=== PATIENT | female | born 1990 | race African-American/Black ===

== ENCOUNTER 2016-10-12 16:21 | Emergency (ER) | payer MEDICAID ==
--- NOTE | 2016-10-12 17:23 | ER Document Report ---
ED Medical Screen (RME) - General Stated Complaint: ABDOMINAL PAIN Notes: 3 days sudden onset LUQ abdominal pain, dull ache that is illicted with touch and movement, can become so severe that she gets nauseous. otherwise able to tolerate diet, no vomiting. admits to mild flank pain but absence of pyuria, frequency, hematuria LMP: on depo. denies PMH TRAVEL OUTSIDE OF THE [place] IN LAST 30 DAYS: No - Related Data Allergies/Adverse Reactions: No Known Allergies Allergy (Verified 03/04/15 21:03) Past Medical History - Social History Family history: None - Immunizations Hx Diphtheria, Pertussis, Tetanus Vaccination: Yes
[2016-10-12 17:55] LABS: APPEARANCE,URINE SLIGHTLY-CLOUDY; BILIRUBIN,URINE NEGATIVE (NEGATIVE); GLUCOSE, URINE NEGATIVE (NEGATIVE); KETONES,URINE NEGATIVE (NEGATIVE); LEUKOCYTE ESTERASE,URINE NEGATIVE (NEGATIVE); NITRITE,URINE NEGATIVE (NEGATIVE); PROTEIN,URINE NEGATIVE (NEGATIVE); URINE SPECIFIC GRAVITY 1.028; UROBILINOGEN,URINE NEGATIVE mg/dL (<2.0)
[2016-10-12] MEDS ORDERED: LIDOCAINE 5% (700 MG) TRANSDERMAL ADH..PATCH TP ONE (19:28)
[2016-10-12] MEDS ORDERED: IBUPROFEN 600 MG TABLET PO ONE (19:28)
--- NOTE | 2016-10-12 19:31 | ER Document Report ---
ED General - General Chief Complaint: Abdominal Pain Stated Complaint: ABDOMINAL PAIN Notes: Patient is a 26-year-old female without past medical history who presents with 3 days of left upper quadrant abdominal pain that is only present when palpating the area. Describes as a mild, dull, aching pain. Nothing improves the pain other than not touching the area. States that she first notices pain when her walked across her abdomen 3 days ago. She denies any pain except for when she moves or rotates around the area or presses on the area. She denies any associated nausea, vomiting, diarrhea, shortness of breath, chest pain, fever. No history of similar symptoms in the past. She has not done anything to try to treat her symptoms. She has not seen her primary care physician regarding these concerns today. No history of DVT or pulmonary embolus. She does not take any form of estrogen. TRAVEL OUTSIDE OF THE [place] IN LAST 30 DAYS: No - Related Data Allergies/Adverse Reactions: No Known Allergies Allergy (Verified 10/12/16 17:19) Past Medical History - General Information source: Patient - Social History Smoking Status: Current Every Day Smoker Chew tobacco use (# tins/day): No Frequency of alcohol use: None Drug Abuse: None Lives with: Spouse/Significant other Family History: Reviewed & Not Pertinent Patient has suicidal ideation: No Patient has homicidal ideation: No Renal/ Medical History: Denies: Hx Peritoneal Dialysis - Immunizations Hx Diphtheria, Pertussis, Tetanus Vaccination: Yes Review of Systems - Review of Systems Notes: Constitutional: Negative for fever. HENT: Negative for sore throat. Eyes: Negative for visual changes. Cardiovascular: Negative for chest pain. Respiratory: Negative for shortness of breath. Gastrointestinal: Positive for abdominal pain, negative for vomiting or diarrhea. Genitourinary: Negative for dysuria. Musculoskeletal: Negative for back pain. Skin: Negative for rash. Neurological: Negative for headaches, weakness or numbness. 10 point ROS negative except as marked above and in HPI. Physical Exam - Vital signs Vitals: Temp Pulse Resp BP Pulse Ox 98.2 F 82 16 105/67 100 10/12/16 17:19 10/12/16 17:19 10/12/16 17:19 10/12/16 17:19 10/12/16 17:19 Interpretation: Normal Notes: PHYSICAL EXAMINATION: GENERAL: Well-appearing, well-nourished and in no acute distress. HEAD: Atraumatic, normocephalic. EYES: Pupils equal round and reactive to light, extraocular movements intact, sclera anicteric, conjunctiva are normal. ENT: nares patent, oropharynx clear without exudates. Moist mucous membranes. NECK: Normal range of motion, supple without lymphadenopathy LUNGS: Breath sounds clear to auscultation bilaterally and equal. No wheezes rales or rhonchi. HEART: Regular rate and rhythm without murmurs ABDOMEN: Soft, nontender, normoactive bowel sounds. No guarding, no rebound. No masses appreciated. EXTREMITIES: Normal range of motion, no pitting or edema. No cyanosis. NEUROLOGICAL: No focal neurological deficits. Moves all extremities spontaneously and on command. PSYCH: Normal mood, normal affect. SKIN: Warm, Dry, normal turgor, no rashes or lesions noted. Course - Re-evaluation Re-evalutation: 10/12/16 19:29 Patient presents with left upper quadrant abdominal pain but is otherwise very well appearance, vitals within normal limits, no acute distress. She denies any abdominal pain except for when the area is palpated or when she moves. Clinical history is not consistent with an acute pulmonary embolus and the patient is PERC criteria negative. She has no history of autoimmune conditions or sickle cell anemia to suggest an acute splenic pathology. No splenomegaly. Patient denies any flank pain, dysuria, or hematuria. She states the pain certain after her child walked on the area and I suspect there may be a musculoskeletal component to her pain. However, at this time of assessment the patient the exact etiology of her pain is unclear but I do not suspect any acute life-threatening pathology at this time. I do not see any indication based on history, vitals and exam for labs or additional imaging.At this time will discharge with return precautions and follow-up recommendations. Verbal discharge instructions given a the bedside and opportunity for questions given. Medication warnings reviewed. Patient is in agreement with this plan and has verbalized understanding of return precautions and the need for primary care follow-up in the next 24-72 hours. - Vital Signs Vital signs: Temp Pulse Resp BP Pulse Ox 98.7 F 84 12 108/64 100 10/12/16 19:36 10/12/16 19:36 10/12/16 19:36 10/12/16 19:36 10/12/16 19:36 Discharge - Discharge Clinical Impression: Left upper quadrant abdominal pain of unknown etiology Condition: Good Disposition: HOME, SELF-CARE Additional Instructions: You have been seen in the Emergency Department (ED) for abdominal pain. Your evaluation did not identify a clear cause of your symptoms but was generally reassuring. Please follow up with your doctor as soon as possible regarding today's emergent visit and the symptoms that are bothering you. Return to the ED if your abdominal pain worsens or fails to improve, you develop bloody vomiting, bloody diarrhea, you are unable to tolerate fluids due to vomiting, fever greater than 101, or other symptoms that concern you.
[2016-10-12 19:37] VITALS: BP 108/64
== END 2016-10-12 20:02 | disposition home or self-care (01) ==
LOC: ER 16:21
DX: R10.12 Left upper quadrant pain (principal); R10.9 Unspecified abdominal pain; F17.210 Nicotine dependence, cigarettes, uncomplicated
CPT/HCPCS: 99284; 81001; J3490 ×2

== ENCOUNTER 2017-03-24 21:09 | Emergency (ER) | payer MEDICAID ==
--- NOTE | 2017-03-24 22:17 | ER Document Report ---
HPI - HPI Patient complains to provider of: low back pain Onset: Other - 3 days Onset/Duration: Persistent Quality of pain: Achy Pain Level: 4 Context: Patient presents emergency department with complaints of low back pain. Patient reports she started experience back pain approximately 3 days ago. Denies trauma. She reports she did move 1 week ago lifting heavy boxes. Denies pain at that time. Reports she has taken Tylenol Motrin without relief of symptoms. Denies urinary or bowel incontinence or retention. Denies numbness and tingling. Denies urinary frequency or pain with void. Denies fever vomiting diarrhea. 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 IN LAST 30 DAYS: No - HEENT HEENT: Atraumatic, Normocephalic - NECK Neck: Normal Inspection, Supple. negative: Lymphadenopathy-Left, Lymphadenopathy-Right - RESPIRATORY Respiratory: Breath Sounds Normal, No Respiratory Distress O2 Sat by Pulse Oximetry: 94 - CARDIOVASCULAR Cardiovascular: Regular Rate - GI/ABDOMEN Gastrointestinal: Abdomen Soft - BACK Back: Normal Inspection - No obvious deformity no swelling no erythema no warmth good distal movement and sensation no weakness good reflexes - MUSCULOSKELETAL/EXTREMETIES Musculoskeletal/Extremeties: AKIL CONTRERAS - NEURO Level of Consciousness: Awake, Alert, Appropriate Motor/Sensory: No Motor Deficit - DERM Integumentary: Warm, Dry Adult Front & Back Diagram: 1 - Reports low back pain. paraspinal no vertebral tenderness Course - Re-evaluation Re-evalutation: 03/24/17 22:49 The patient presents with low back pain without signs of spinal cord compression , cauda equine syndrome, infection, aneurysm, or other serious etiology. The patient is neurologically intact. The patient has good distal movement and sensation, denies urinary or bowel incontinence/retention. Given the extremely low risk of these diagnosis, further testing and evaluation for these possibilities does not appear to be indicated at this time. The patient has been instructed to return if the symptoms worsen or change in anyway. Patient is breast-feeding. She was cautioned on Robaxin and muscle relaxers that could be excreted in the breast milk and take caution. - Vital Signs Vital signs: Temp Pulse Resp BP Pulse Ox 98.9 F 77 16 119/78 94 03/24/17 22:03 03/24/17 22:03 03/24/17 22:03 03/24/17 22:03 03/24/17 22:03 Discharge - Discharge Clinical Impression: low back muscle pain Condition: Stable Disposition: HOME, SELF-CARE Instructions: Ice Packs ([facility]), Low Back Pain ([facility]), Muscle Relaxers ([facility]), Muscle Strain ([facility]), Use of Jfcq-Ofo-Nrrebfe Ibuprofen ([facility]) Additional Instructions: *You have been evaluated for low back muscular pain *Take medication as prescribed *Take ibuprofen as indicated *Rest/Ice- heat packs as directed *Follow up with a primary care provider within one week for recheck *Return to ED for worsening condition, changes, needs Prescriptions: Cyclobenzaprine HCl [Flexeril 5 mg Tablet] 5 mg PO TID #15 tablet Forms: Return to Work Referrals: JACKIE MURRAY MD [Primary Care Provider] - Follow up in 1 week
[2017-03-24] MEDS ORDERED: METHOCARBAMOL 500 MG TABLET PO ONE (22:46)
[2017-03-24 23:20] VITALS: BP 109/69
== END 2017-03-24 23:15 | disposition home or self-care (01) ==
LOC: ER 21:09
DX: M54.5 Low back pain (principal); M54.9 Dorsalgia, unspecified
CPT/HCPCS: 99283; J3490

== ENCOUNTER 2018-11-10 00:28 | Emergency (ER) | payer MEDICAID ==
[2018-11-10] MEDS ORDERED: ONDANSETRON HCL INJ/PF 4 MG/2 ML SDV IV ONE (01:39)
--- NOTE | 2018-11-10 01:46 | ER Document Report ---
ED GI/ - General Chief Complaint: Abdominal Cramping Stated Complaint: ABDOMINAL PAIN Time Seen by Provider: 11/10/18 01:13 Primary Care Provider: [facility] [Provider Group] - 11/11/18 Notes: Patient is a 28-year-old female, at approximately 7 weeks gestation by last menstrual period, that comes emergency department for chief complaint of worsening lower abdominal pain on both sides for the past several days. She denies vaginal bleeding, dysuria, vaginal discharge, flank pain, fever/chills. She reports nausea but denies vomiting. She has not yet had a confirmed IUP. She is taking vitamins, she does not take any other medications, she denies any medical history otherwise other than a miscarriage. TRAVEL OUTSIDE OF THE [place] IN LAST 30 DAYS: No - Related Data Allergies/Adverse Reactions: No Known Allergies Allergy (Verified 03/24/17 22:03) Past Medical History - General Information source: Patient - Social History Smoking Status: Never Smoker Frequency of alcohol use: None Drug Abuse: None Lives with: Family Family History: Reviewed & Not Pertinent - Medical History Medical History: Negative Renal/ Medical History: Denies: Hx Peritoneal Dialysis Surgical Hx: Negative - Immunizations Immunizations up to date: Yes Hx Diphtheria, Pertussis, Tetanus Vaccination: Yes Review of Systems - Review of Systems Constitutional: No symptoms reported EENT: No symptoms reported Cardiovascular: No symptoms reported Respiratory: No symptoms reported Gastrointestinal: See HPI Genitourinary: See HPI Female Genitourinary: See HPI Musculoskeletal: No symptoms reported Skin: No symptoms reported Hematologic/Lymphatic: No symptoms reported Neurological/Psychological: No symptoms reported Physical Exam - Vital signs Vitals: Temp Pulse Resp BP Pulse Ox 98.6 F 78 16 110/69 100 11/10/18 01:01 11/10/18 01:01 11/10/18 01:01 11/10/18 01:01 11/10/18 01:01 - Notes Notes: GENERAL: Alert, interacts well. No acute distress. HEAD: Normocephalic, atraumatic. EYES: Pupils equal, round, and reactive to light. Extraocular movements intact. ENT: Oral mucosa moist, tongue midline. Oropharynx unremarkable. Airway patent. Nares patent, no nasal septal hematoma, TM's intact. NECK: Full range of motion. Supple. Trachea midline. LUNGS: Clear to auscultation bilaterally, no wheezes, rales, or rhonchi. No respiratory distress. HEART: Regular rate and rhythm. No murmur ABDOMEN: Soft, non-tender. Non-distended. Bowel sounds present in all 4 quadrants. GENITOURINARY: Deferred EXTREMITIES: Moves all 4 extremities spontaneously. No edema, normal radial and dorsalis pedis pulses bilaterally. No cyanosis. BACK: no cervical, thoracic, lumbar midline tenderness. No saddle anesthesia, normal distal neurovascular exam. NEUROLOGICAL: Alert and oriented x3. Normal speech. [cranial nerves II through XII grossly intact]. PSYCH: Normal affect, normal mood. SKIN: Warm, dry, normal turgor. No rashes or lesions noted. Course - Re-evaluation Re-evalutation: Patient alert and well-appearing. No symptoms reported after nausea medication. Abdomen soft and nontender. Unremarkable vital signs. CBC unremarkable. HCG is very elevated. Urinalysis unremarkable. RhoGam is not indicated. Ultrasound showing intrauterine with twin gestation, heartbeats identified, unremarkable otherwise. I discussed this with patient, provided her with a copy for the report, she states that she has close follow-up with [facility]. Discussed expectations and return precautions, provided with nausea medication after discussion. Patient states understanding and agreement. Stable at time of discharge. - Vital Signs Vital signs: Temp Pulse Resp BP Pulse Ox 98.3 F 84 16 109/62 100 11/10/18 03:56 11/10/18 03:56 11/10/18 03:56 11/10/18 03:56 11/10/18 03:56 - Laboratory Result Diagrams: 11/10/18 01:42 Laboratory results interpreted by me: 11/10/18 11/10/18 01:42 01:42 Hct 35.8 L Beta HCG, Quant [id number] H Discharge - Discharge Clinical Impression: Nausea, Abdominal cramping affecting Twin gestation in first trimester Qualifiers: Multiple gestation type: unspecified Qualified Code(s): O30.001 - Twin , unspecified number of placenta and unspecified number of amniotic sacs, first trimester Condition: Stable Disposition: HOME, SELF-CARE Additional Instructions: Your ultrasound shows developing twin gestation at 6 weeks 6 days. No concerning abnormality's are seen on your laboratory or ultrasound. Take Reglan if needed for nausea, take Tylenol for need for pain, stay hydrated. Follow-up closely with [facility]CHNIC[facility] for additional evaluation and management. Return for any concerning symptoms including severe worsening pain, fever, uncontrolled vomiting, bleeding, or any other concerning or worsening symptoms. Prescriptions: Metoclopramide HCl [Reglan] 5 mg PO ASDIR PRN #30 tablet PRN Reason: Referrals: [facility] [Provider Group] - 11/11/18
[2018-11-10 01:54] LABS: ABSOLUTE EOSINOPHILS # (AUTO) 0.1 10^3/uL (0.0-0.6); ABSOLUTE LYMPHOCYTES (AUTO) 2.4 10^3/uL (0.5-4.7); ABSOLUTE MONOCYTES (AUTO) 0.6 10^3/uL (0.1-1.4); ABSOLUTE NEUT (AUTO) 5.4 10^3/uL (1.7-8.2); BASOPHILS % (AUTO) 0.5 % (0-2); EOSINOPHILS % (AUTO) 0.6 % (0-6); HEMATOCRIT 35.8 % (36.0-47.0); HEMOGLOBIN 12.1 g/dL (12.0-15.5); LYMPHOCYTES % (AUTO) 28.3 % (13-45); MEAN CORPUSCULAR HEMOGLOBIN 29.7 pg (27.0-33.4); MEAN CORPUSCULAR HGB CONC 33.7 g/dL (32.0-36.0); MEAN CORPUSCULAR VOLUME 88 fl (80-97); PLATELET COUNT 202 10^3/uL (150-450); RED BLOOD COUNT 4.06 10^6/uL (3.72-5.28); RED CELL DISTRIBUTION WIDTH 13.2 % (11.5-14.0); SEGMENTED NEUTROPHILS % (AUTO) 63.6 % (42-78); TOTAL CELLS COUNTED % (AUTO) 100 %; WHITE BLOOD COUNT 8.5 10^3/uL (4.0-10.5)
[2018-11-10 02:07] LABS: AMORPHOUS SEDIMENT,URINE TRACE /HPF; APPEARANCE,URINE CLOUDY; BILIRUBIN,URINE NEGATIVE (NEGATIVE); COLOR,URINE YELLOW; GLUCOSE, URINE NEGATIVE (NEGATIVE); KETONES,URINE NEGATIVE (NEGATIVE); LEUKOCYTE ESTERASE,URINE NEGATIVE (NEGATIVE); NITRITE,URINE NEGATIVE (NEGATIVE); PROTEIN,URINE NEGATIVE (NEGATIVE); URINE SPECIFIC GRAVITY 1.016; UROBILINOGEN,URINE NEGATIVE mg/dL (<2.0)
--- NOTE | 2018-11-10 02:21 | RADIOLOGY REPORT (SQ) ---
EXAM DESCRIPTION: US TRANSVAGINAL COMPLETED DATE/TME: 11/10/2018 01:21 CLINICAL HISTORY: 28 years, Female, +HCG, pelvic pain COMPARISON: None. TECHNIQUE: Transverse and longitudinal transvaginal sonographic images of the pelvis in a first trimester patient LIMITATIONS: None. FINDINGS: The uterus measures 10.5 x 6.9 x 5.6 cm. There is a twin intrauterine with 2 distinct gestational sacs and 2 distinct poles. Baby A has heart tones obtained at 153 bpm. Average ultrasound age for baby A is 6 weeks 6 days based on a mean crown-rump length of 0.91 cm. Baby B has heart tones obtained at 157 bpm. Of sound 8 for baby B is 6 weeks 6 days based on a mean crown-rump length of 0.87 cm. Assessment of the adnexal fluid volume and placenta is not performed due to early gestational age. The maternal right ovary measures 3.8 x 2.6 x 2.5 cm, the left 4.3 x 3.3 x 3.6 cm. Left ovarian cyst likely relates to corpus luteal cyst measuring 3.4 x 3.2 x 3.3 cm. No solid adnexal mass. No free fluid. Cervical length is 3.92 cm. IMPRESSION: Viable twin intrauterine gestation, as above. Nonemergent obstetric follow-up recommended. Current ultrasound age for both baby A and baby B is 6 weeks 6 days copyright 2011 [employer]- All Rights Reserved
[2018-11-10 04:24] VITALS: BP 109/62
== END 2018-11-10 03:56 | disposition home or self-care (01) ==
LOC: ER 00:28
DX: O26.891 Other specified pregnancy related conditions, first trimester (principal); R11.0 Nausea; R10.30 Lower abdominal pain, unspecified; O30.001 Twin pregnancy, unspecified number of placenta and unspecified number of amniotic sacs, first trimester; Z3A.01 Less than 8 weeks gestation of pregnancy
CPT/HCPCS: 99284; 96374; 86900; 86901; 36415; 84702; 85025; 81001; 76817; 93976; J2405

== ENCOUNTER 2019-06-25 16:10 | Inpatient (IN) | payer MEDICAID ==
[2019-06-25 16:38] LABS: APPEARANCE,URINE CLEAR; BILIRUBIN,URINE NEGATIVE (NEGATIVE); COLOR,URINE YELLOW; GLUCOSE, URINE NEGATIVE (NEGATIVE); KETONES,URINE TRACE mg/dL (NEGATIVE); LEUKOCYTE ESTERASE,URINE NEGATIVE (NEGATIVE); NITRITE,URINE NEGATIVE (NEGATIVE); PROTEIN,URINE NEGATIVE (NEGATIVE); URINE SPECIFIC GRAVITY 1.009; UROBILINOGEN,URINE NEGATIVE mg/dL (<2.0)
--- NOTE | 2019-06-25 16:47 | Admission Physical ---
Datetime Report Generated by CPN: 06/25/2019 16:46 CURRENT ADMISSION Hx Assessment: The History has been Reviewed and is Current Chief Complaint: Uterine Contractions Indication for Induction: Not Applicable Admit Impression : Term, Intrauterine Admit Plan: Admit to Unit; Initiate Labor Protocol ALLERGIES Medication Allergies: No Medication Allergies: No Known Allergies (03/24/2017) OBSTETRICAL HISTORY EDC: 06/24/2019 00:00 : 3 Para: 1 Livin PHYSICAL EXAM General: Normal Lungs: Normal Extremities: Normal Pelvic Type: Adequate Physical Exam Comments: pelvis proven to 7lbs 2 oz Vital Signs: Reviewed; Within Normal Limits VAGINAL EXAM Contraction Comments: 4-10 MEMBRANES Membranes: Bulging FETUS A EGA: 40.1 Monitoring: External US FHR Category: Category I Presentation: Vertex Admit Comment: 29yo @ 40w1d into L_D with contractions about 10min apart x2hrs and found to be 7-8cm on exam. Pt. is GBS neg, O pos, RI with significant hx for EAB and twin with this with loss of one baby at @8wga otherwise uncomplicated. Plan is to admit and deliver baby. Unsure about pain medication at this time. INFORMED CONSENT Assignment: Anabell Monet MD Signature: with User ID: [email or web address] : with User ID: [email or web address]
[2019-06-25 16:54] LABS: URINE AMPHETAMINES SCREEN NEGATIVE; URINE BARBITURATES SCREEN NEGATIVE; URINE BENZODIAZEPINES SCREEN NEGATIVE; URINE COCAINE SCREEN NEGATIVE; URINE MARIJUANA (THC) SCREEN NEGATIVE; URINE METHADONE SCREEN NEGATIVE; URINE PHENCYCLIDINE SCREEN NEGATIVE
[2019-06-25 17:07] LABS: ABSOLUTE EOSINOPHILS # (AUTO) 0.1 10^3/uL (0.0-0.6); ABSOLUTE LYMPHOCYTES (AUTO) 1.8 10^3/uL (0.5-4.7); ABSOLUTE MONOCYTES (AUTO) 0.7 10^3/uL (0.1-1.4); BASOPHILS % (AUTO) 0.4 % (0-2); EOSINOPHILS % (AUTO) 0.7 % (0-6); HEMOGLOBIN 12.1 g/dL (12.0-15.5); LYMPHOCYTES % (AUTO) 18.6 % (13-45); MEAN CORPUSCULAR HEMOGLOBIN 30.3 pg (27.0-33.4); MEAN CORPUSCULAR HGB CONC 33.7 g/dL (32.0-36.0); MEAN CORPUSCULAR VOLUME 90 fl (80-97); MONOCYTES % (AUTO) 7.1 % (3-13); PLATELET COUNT 169 10^3/uL (150-450); RED BLOOD COUNT 4.01 10^6/uL (3.72-5.28); RED CELL DISTRIBUTION WIDTH 13.4 % (11.5-14.0); SEGMENTED NEUTROPHILS % (AUTO) 73.2 % (42-78); TOTAL CELLS COUNTED % (AUTO) 100 %; WHITE BLOOD COUNT 9.5 10^3/uL (4.0-10.5)
[2019-06-25] MEDS ORDERED: OXYTOCIN 10 UNIT/ML VIAL ONE (18:30)
[2019-06-25] MEDS ORDERED: MISOPROSTOL 0.2 MG TABLET ONE (18:30)
[2019-06-25] MEDS ORDERED: OXYTOCIN/NORMAL SALINE 20 UNIT/1,000 ML RTUINJ ONE (18:30)
[2019-06-25] MEDS ORDERED: LIDOCAINE 1% INJ-PF (10 MG/ML) 30 ML SDV ONE (18:30)
[2019-06-25] MEDS: ACETAMINOPHEN WITH CODEINE #3 TABLET PO PRN (19:23)
[2019-06-25] MEDS ORDERED: OXYTOCIN IV PRN (19:25)
[2019-06-25] MEDS ORDERED: DIBUCAINE 1% OINTMENT 56 GM TP PRN (19:25)
[2019-06-25] MEDS ORDERED: DIPH/PERTUSS(ACELL)/TETANUS VAC/PF 0.5 ML SYR (>=10YO) IM PRN (19:25)
[2019-06-25] MEDS ORDERED: ZOLPIDEM TARTRATE 5 MG TABLET PO PRN (19:25)
[2019-06-25] MEDS ORDERED: NORMAL SALINE IV PRN (19:25)
[2019-06-25] MEDS ORDERED: ACETAMINOPHEN WITH CODEINE #3 TABLET PO PRN (19:25)
[2019-06-25] MEDS ORDERED: ACETAMINOPHEN WITH CODEINE #3 TABLET ONE (19:29)
--- NOTE | 2019-06-25 21:30 | Warning Signs in Babies ---
VOD Warning Signs Datetime Report Generated by N: 06/25/2019 21:30 VOD#608 -Warning Signs in Babies: Viewed with Parent(s)/Family (06/25/2019 21:29:Jayy Jorgenesn RN)
[2019-06-25] MEDS: IBUPROFEN 800 MG TABLET PO SCH (23:51)
[2019-06-25] MEDS: BENZOCAINE/MENTHOL AEROSOL SPRAY 56 ML TOP PRN (23:52)
[2019-06-26] MEDS: IBUPROFEN 800 MG TABLET PO SCH ×3 (06:03→23:11)
[2019-06-26 07:05] LABS: HEMATOCRIT 35.3 % (36.0-47.0); HEMOGLOBIN 11.8 g/dL (12.0-15.5); MEAN CORPUSCULAR HEMOGLOBIN 30.1 pg (27.0-33.4); MEAN CORPUSCULAR HGB CONC 33.6 g/dL (32.0-36.0); MEAN CORPUSCULAR VOLUME 90 fl (80-97); PLATELET COUNT 151 10^3/uL (150-450); RED BLOOD COUNT 3.93 10^6/uL (3.72-5.28); RED CELL DISTRIBUTION WIDTH 13.5 % (11.5-14.0); WHITE BLOOD COUNT 13.2 10^3/uL (4.0-10.5)
[2019-06-26] MEDS: FERROUS SULFATE 325 MG TABLET PO SCH ×2 (11:06→17:53)
[2019-06-26] MEDS: SENNOSIDES/DOCUSATE 8.6-50 MG 1 EACH TABLET PO SCH (11:06)
[2019-06-26] MEDS: PRENATAL VITAMIN W DHA CAPSULE PO SCH (11:06)
[2019-06-26] MEDS: DOCUSATE SODIUM 100 MG CAPSULE PO SCH ×2 (11:06→17:53)
--- NOTE | 2019-06-26 11:46 | PDOC PROGRESS REPORT ---
Subjective-OB Progress Note for:: 06/26/19 Physical Exam (OB) Vital Signs: Temp Pulse Resp BP Pulse Ox 97.8 F 64 18 110/66 100 06/26/19 07:36 06/26/19 07:36 06/26/19 07:36 06/26/19 07:36 06/26/19 07:36 Intake & Output 06/25/19 06/26/19 06/27/19 06:59 06:59 06:59 Weight 73.936 kg - Lochia Lochia Amount: Scant < 10 ml Lochia Color: Rubra/Red - Abdomen Description: Tender, Soft Hernia Present: No Bowel Sounds: Normoactive Flatus Presence: Present Stool: No Fundal Description: Firm, Midline Fundal Height: u/u - u/2 Objective-Diagnostic Laboratory: 06/26/19 06:25 06/25/19 06/25/19 06/25/19 16:23 16:50 16:50 WBC 9.5 RBC 4.01 Hgb 12.1 Hct 36.0 MCV 90 MCH 30.3 MCHC 33.7 RDW 13.4 Plt Count 169 Seg Neutrophils % 73.2 Urine Color YELLOW Urine Appearance CLEAR Urine pH 7.0 Ur Specific [place] 1.009 Urine Protein NEGATIVE Urine Glucose (UA) NEGATIVE Urine Ketones TRACE H Urine Blood NEGATIVE Urine Nitrite NEGATIVE Ur Leukocyte Esterase NEGATIVE Blood Type O POSITIVE Antibody Screen NEGATIVE 06/26/19 06:25 WBC 13.2 H RBC 3.93 Hgb 11.8 L Hct 35.3 L MCV 90 MCH 30.1 MCHC 33.6 RDW 13.5 Plt Count 151 Seg Neutrophils % Urine Color Urine Appearance Urine pH Ur Specific [place] Urine Protein Urine Glucose (UA) Urine Ketones Urine Blood Urine Nitrite Ur Leukocyte Esterase Blood Type Antibody Screen
[2019-06-26] MEDS: ACETAMINOPHEN WITH CODEINE #3 TABLET PO PRN ×2 (11:50→17:56)
[2019-06-27] MEDS: IBUPROFEN 800 MG TABLET PO SCH (06:13)
[2019-06-27 08:12] VITALS: BP 117/83
[2019-06-27] MEDS: PRENATAL VITAMIN W DHA CAPSULE PO SCH (09:18)
[2019-06-27] MEDS: DOCUSATE SODIUM 100 MG CAPSULE PO SCH (09:18)
[2019-06-27] MEDS: BENZOCAINE/MENTHOL AEROSOL SPRAY 56 ML TOP PRN (09:18)
[2019-06-27] MEDS: SENNOSIDES/DOCUSATE 8.6-50 MG 1 EACH TABLET PO SCH (09:18)
[2019-06-27] MEDS: FERROUS SULFATE 325 MG TABLET PO SCH (09:18)
[2019-06-27] MEDS: ACETAMINOPHEN WITH CODEINE #3 TABLET PO PRN (09:26)
--- NOTE | 2019-06-27 10:32 | PDOC PROGRESS REPORT ---
Subjective-OB Progress Note for:: 06/27/19 Subjective: Doing well, ready to go home, , voiding Physical Exam (OB) Vital Signs: Temp Pulse Resp BP Pulse Ox 98.4 F 78 18 117/83 100 06/27/19 10:29 06/27/19 10:29 06/27/19 10:29 06/27/19 07:39 06/27/19 10:29 Intake & Output 06/26/19 06/27/19 06/28/19 06:59 06:59 06:59 Intake Total 600 Balance 600 Weight 73.936 kg - PIH/Pre-Eclampsia DTR's: 1 + Clonus: Negative Headache: Absent Epigastric Pain: No Visual Changes: No - Lochia Lochia Amount: Scant < 10 ml Lochia Color: Rubra/Red - Abdomen Description: Soft Hernia Present: No Fundal Description: Firm, Midline Fundal Height: u/u - u/2 Objective-Diagnostic Laboratory: 06/26/19 06:25 Assessment and Plan(PN) - Assessment and Plan (1) Precipitous delivery Is this a current diagnosis for this admission?: Yes (2) Delivery normal Is this a current diagnosis for this admission?: Yes - Time Spent with Patient Time with patient: Less than 15 minutes Medications reviewed and adjusted accordingly: Yes - Disposition Anticipated Discharge: Home Within: within 24 hours
--- NOTE | 2019-06-27 10:36 | PDOC DISCHARGE SUMMARY ---
Impression - Admit/DC Date/PCP Admission Date/Primary Care Provider: 06/25/19 16:42 JACKIE MURRAY MD Discharge Date: 06/27/19 - Discharge Diagnosis (1) Precipitous delivery Is this a current diagnosis for this admission?: Yes (2) Delivery normal Is this a current diagnosis for this admission?: Yes - Additional Information Resuscitation Status: Full Code Discharge Diet: As Tolerated, Regular Discharge Activity: Activity As Tolerated, No Lifting Over 10 Pounds, No Lifting/Push/Pulling, Pelvic Rest Referrals: JACKIE MURRAY MD [Primary Care Provider] - (4 weeks) ELVIN NICHOLAS MD [ACTIVE STAFF] - Home Medications: Prenat 115/Iron Fum/Folic/Dss [ 19 Tablet] 1 tab PO DAILY 03/04/15 HPI Gestational Age: 40.1 Reason(s) for Admission: Onset of Labor Procedures: Ultrasound Intrapartum Procedure(s): Spontaneous Vaginal Delivery Hospital Course Hospital Course: Admitted in labor, del male infant, 8/9, no lacerations Results Laboratory Results: WBC 13.2 10^3/uL (4.0-10.5) H 06/26/19 06:25 RBC 3.93 10^6/uL (3.72-5.28) 06/26/19 06:25 Hgb 11.8 g/dL (12.0-15.5) L 06/26/19 06:25 Hct 35.3 % (36.0-47.0) L 06/26/19 06:25 MCV 90 fl (80-97) 06/26/19 06:25 MCH 30.1 pg (27.0-33.4) 06/26/19 06:25 MCHC 33.6 g/dL (32.0-36.0) 06/26/19 06:25 RDW 13.5 % (11.5-14.0) 06/26/19 06:25 Plt Count 151 10^3/uL (150-450) 06/26/19 06:25 Lymph % (Auto) 18.6 % (13-45) 06/25/19 16:50 [place] % (Auto) 7.1 % (3-13) 06/25/19 16:50 Eos % (Auto) 0.7 % (0-6) 06/25/19 16:50 Baso % (Auto) 0.4 % (0-2) 06/25/19 16:50 Absolute Neuts (auto) 7.0 10^3/uL (1.7-8.2) 06/25/19 16:50 Absolute Lymphs (auto) 1.8 10^3/uL (0.5-4.7) 06/25/19 16:50 Absolute Monos (auto) 0.7 10^3/uL (0.1-1.4) 06/25/19 16:50 Absolute Eos (auto) 0.1 10^3/uL (0.0-0.6) 06/25/19 16:50 Absolute Basos (auto) 0.0 10^3/uL (0.0-0.2) 06/25/19 16:50 Seg Neutrophils % 73.2 % (42-78) 06/25/19 16:50 Urine Color YELLOW 06/25/19 16:23 Urine Appearance CLEAR 06/25/19 16:23 Urine pH 7.0 (5.0-9.0) 06/25/19 16:23 Ur Specific [place] 1.009 06/25/19 16:23 Urine Protein NEGATIVE mg/dL (NEGATIVE) 06/25/19 16:23 Urine Glucose (UA) NEGATIVE mg/dL (NEGATIVE) 06/25/19 16:23 Urine Ketones TRACE mg/dL (NEGATIVE) H 06/25/19 16:23 Urine Blood NEGATIVE (NEGATIVE) 06/25/19 16:23 Urine Nitrite NEGATIVE (NEGATIVE) 06/25/19 16:23 Urine Bilirubin NEGATIVE (NEGATIVE) 06/25/19 16:23 Urine Urobilinogen NEGATIVE mg/dL (<2.0) 06/25/19 16:23 Ur Leukocyte Esterase NEGATIVE (NEGATIVE) 06/25/19 16:23 Urine Ascorbic Acid NEGATIVE (NEGATIVE) 06/25/19 16:23 Urine Opiates Screen NEGATIVE 06/25/19 16:23 Urine Methadone Screen NEGATIVE 06/25/19 16:23 Ur Barbiturates Screen NEGATIVE 06/25/19 16:23 Ur Phencyclidine Scrn NEGATIVE 06/25/19 16:23 Ur Amphetamines Screen NEGATIVE 06/25/19 16:23 U Benzodiazepines Scrn NEGATIVE 06/25/19 16:23 Urine Cocaine Screen NEGATIVE 06/25/19 16:23 U Marijuana (THC) Screen NEGATIVE 06/25/19 16:23 RPR NONREACTIVE (NONREACTIVE) 06/25/19 16:50 Blood Type O POSITIVE 06/25/19 16:50 Antibody Screen NEGATIVE 06/25/19 16:50 Plan Health Concerns: none Plan of Treatment: RTC 4 weeks Time Spent: Less than 30 Minutes
--- NOTE | 2019-07-01 08:15 | Delivery Summary ---
Del Sum A-C Datetime Report Generated by CPN: 07/01/2019 08:14 DELIVERY PERSONNEL DELIVERY PERSONNEL: [id number] Delivery Doctor:: Anabell Monet MD Labor and Delivery Nurse:: Elidia Newton RNdoor assembler Nurse:: Jayy Jorgensen RN Business Continuity Director/FIRE AND SAFETY HELPER: Shilpa French Additional Personnel: : Laura Grace RN MATERNAL INFORMATION Delivery Anesthesia: None Medications After Delivery: Pitocin Bolus-Please Comment Meds After Delivery Comment: Pitocin 20 units/ 1000 ml NSS Delivery QBL: 0 Delivery QBL Comment: 0 Maternal Complications: Precipitous Labor (<3hrs) Provider Comments: of a viable male @ 1912 w/ an JOSEPH w/nuchal cord x 1 presentation; APGARS 8, 9; no lacs LABOR SUMMARY EDC: 06/24/2019 00:00 No. Babies in Womb: 1 Attempted: No Labor Anesthesia: None LABOR INFORMATION Reason for Induction: Not Applicable Onset of Labor: 06/25/2019 16:19 Complete Dilatation: 06/25/2019 19:09 Group B Beta Strep: negative Antibiotics # of Doses: 0 Steroids Given: None Reason Steroids Not Administered: Not Applicable MEMBRANES Membranes Rupture Method: Artificial Rupture of Membranes: 06/25/2019 18:41 Length of Rupture (hr): 0.53 Amniotic Fluid Color: Clear Amniotic Fluid Amount: Small Amniotic Fluid Odor: Normal STAGES OF LABOR Stage 1 hr: 2 Stage 1 min: 50 Stage 2 hr: 0 Stage 2 min: 4 Stage 3 hr: 0 Stage 3 min: 5 Total Time in Labor hr: 2 Total Time in Labor min: 59 VAGINAL DELIVERY Episiotomy: None Laceration #1: None Laceration Extension #1: N/A Laceration Repair: Not Applicable Sponge Count Correct: Yes Sharps Count Correct: N/A CSECTION DELIVERY Primary Indication: N/A Secondary Indication: N/A CSection Incidence: N/A Labor: N/A Elective: N/A CSection Incision: N/A BABY A INFORMATION Delivery Date/Time: 06/25/2019 19:13 Method of Delivery: Vaginal Method of Delivery: Vaginal Born in Route : No : N/A Forceps: N/A Vacuum Extraction: N/A Shoulder Dystocia : No PRESENTATION/POSITION BABY A Presentation: Cephalic Cephalic Presentation: Vertex Vertex Position: Left Occipital Anterior Breech Presentation: N/A PLACENTA INFORMATION BABY A Placenta Delivery Time : 06/25/2019 19:18 Placenta Method of Delivery: Spontaneous Placenta Status: Delivered SCORES BABY A Heart Rate 1 min: >100 bpm Resp Effort 1 min: Good Cry Reflex Irritability 1 min: Cough or Sneeze or Pulls Away Muscle Tone 1 min: Active Motion Color 1 min: Blue/Pale Resuscitation Effort 1 min: Tactile Stimulation SCORE 1 MIN: 8 Heart Rate 5 min: >100 bpm Resp Effort 5 min: Good Cry Reflex Irritability 5 min: Cough or Sneeze or Pulls Away Muscle Tone 5 min: Active Motion Color 5 min: Body Oracle, Extremities Blue Resuscitation Effort 5 min: Tactile Stimulation SCORE 5 MIN: 9 INFORMATION BABY A Gestational Age at Delivery: 40.1 Gestational Status: Full Term- 39- 40.6 Weeks Infant Outcome : Liveborn Infant Condition : Stable Sex: Male Sex: Male IDENTIFICATION BABY A Infant Verification Date/Time: 06/25/2019 21:07 ID Band Number: [id number] Mother's Name Verified: Yes RN Verifying Infant: NDoyle RN, AShafer RN WEIGHT/LENGTH BABY A Infant Birthweight (gm): 3323 Infant Weight (lb): 7 Weight (oz): 5 Infant Length (in): 19.50 Length (cm): 49.53 CORD INFORMATION BABY A No. Cord Vessels: 3 Nuchal Cord : Around Neck x1, Loose Cord Blood Taken: Yes-For Eval (Mom's Blood Type - or O+) Infant Suction: None ASSESSMENT BABY A Complications: None Physical Findings at Delivery: Within Normal Limits Respirations: Appears Normal Skin to Skin: Yes Skin to Skin: Yes Infant Care By: RADHA Swann Transferred To: Remains with Mother SIGNATURES Signature: with User ID: [email or web address]
== END 2019-06-27 12:35 | disposition home or self-care (01) | DRG 807 ==
LOC: LC 16:10 → LR 16:42 → 2S 22:31
PROVIDERS: ADMIT Obstetrics & Gynecology; ATTEND Obstetrics & Gynecology
PROC: 10E0XZZ Delivery of Products of Conception, External Approach (ICD-10-PCS; principal; 2019-06-25)
PROC: 10907ZC Drainage of Amniotic Fluid, Therapeutic from Products of Conception, Via Natural or Artificial Opening (ICD-10-PCS; 2019-06-25)
DX: O62.3 Precipitate labor (principal); Z37.0 Single live birth; O69.81X0 Labor and delivery complicated by cord around neck, without compression, not applicable or unspecified; Z3A.40 40 weeks gestation of pregnancy
CPT/HCPCS: 36415; 80307; 81005; 85025; 85027; 86592; 86850; 86900; 86901; 88307; J2590; J3490